=== PATIENT | male | born 1950 | race Asian ===

== ENCOUNTER 2023-11-17 07:53 | Observation (INO) | payer OTHER ==
[2023-11-17 09:40] LABS: BASO % 0.1 % (0-2.0); EOS % 0.9 % (0-4.5); HEMATOCRIT 39.3 % (35.4-49); HEMOGLOBIN 13.8 GM/dL (11.7-16.9); LYMPH % 15.6 % (8-40); MCH 31.2 pg (25.7-33.7); MCHC 35.2 g/dl (32.0-35.9); MEAN CELL VOLUME 88.6 fl (80-96); MEAN PLT VOLUME 8.3 fl (7.5-11.1); MONO % 5.4 % (3.8-10.2); PLATELET COUNT 177 10^3/uL (134-434); RBC 4.44 M/mm3 (4.00-5.60); RDW 14.6 % (11.9-15.9); WHITE BLOOD COUNT 6.8 K/mm3 (4.0-10.0)
[2023-11-17 09:51] LABS: ACTIVATED PTT 28.4 SECONDS (25.2-36.5); INR 1.03 (0.83-1.09)
[2023-11-17 09:54] LABS: URINE APPEARANCE CLEAR; URINE BILIRUBIN NEGATIVE (NEGATIVE); URINE COLOR YELLOW; URINE GLUCOSE (UA) 3+ (NEGATIVE); URINE KETONE TRACE (NEGATIVE); URINE LEUK ESTERASE NEGATIVE (NEGATIVE); URINE NITRITE NEGATIVE (NEGATIVE); URINE PROTEIN NEGATIVE (NEGATIVE); URINE UROBILINOGEN 0.2 mg/dL (0.2-1.0)
[2023-11-17 10:18] LABS: POTASSIUM 5.7 mmol/L (3.5-5.1)
[2023-11-17 10:22] LABS: CALCIUM 9.1 mg/dL (8.5-10.1)
[2023-11-17 10:23] LABS: ALBUMIN 4.3 g/dl (3.4-5.0); MAGNESIUM 2.2 mg/dL (1.8-2.4)
[2023-11-17 10:26] LABS: BLOOD UREA NITROGEN 15.4 mg/dL (7-18); CREATININE 0.9 mg/dL (0.55-1.3)
[2023-11-17 10:27] LABS: BILIRUBIN,TOTAL 1.1 mg/dL (0.2-1); TOT PROT 7.8 g/dl (6.4-8.2)
[2023-11-17 10:31] LABS: N-TERMINAL BNP 87.8 pg/ml (5-125)
[2023-11-17] MEDS ORDERED: ACETAMINOPHEN INJECTION 100 ML IVPB ONE (10:44)
[2023-11-17] MEDS ORDERED: FAMOTIDINE 20 MG/50 ML IVPB 20 MG/50 ML MG IVPB ONE (10:45)
[2023-11-17] MEDS ORDERED: ONDANSETRON 4 MG/2 ML VIAL ONE (10:45)
[2023-11-17] MEDS: ACETAMINOPHEN 1000 MG/100 ML BAG IVPB ONE (11:07)
[2023-11-17] MEDS: ONDANSETRON 4 MG/2 ML VIAL IVPUSH ONE (11:07)
[2023-11-17] MEDS ORDERED: MECLIZINE HCL 25 MG TABLET (FP) ONE (11:11)
[2023-11-17] MEDS: FAMOTIDINE 20 MG/50 ML IVPB 20 MG/50 ML MG IVPB ONE (12:15)
[2023-11-17] MEDS: MECLIZINE HCL 25 MG TABLET (FP) PO ONE (12:15)
[2023-11-17 13:08] LABS: POTASSIUM 3.5 mmol/L (3.5-5.1)
[2023-11-17 13:09] LABS: BLOOD UREA NITROGEN 15.1 mg/dL (7-18); CALCIUM 9.3 mg/dL (8.5-10.1)
[2023-11-17 13:14] LABS: CREATININE 0.7 mg/dL (0.55-1.3)
[2023-11-17] MEDS ORDERED: NITROGLYCERIN SUBLINGUAL 1/150 0.4 MG TAB SL PRN (13:54)
[2023-11-17 17:32] VITALS: BMI 20.7
[2023-11-17] MEDS: INSULIN ASPART SLIDING SCALE (NOVOLOG) 1 VIAL SQ SCH (18:03)
[2023-11-17] MEDS: MECLIZINE HCL 25 MG TABLET (FP) PO PRN (19:34)
[2023-11-17 21:28] VITALS: RESP 18
[2023-11-17] MEDS: ATORVASTATIN CA 20 MG TABLET (FP) PO SCH (21:28)
[2023-11-18] MEDS: DIVALPROEX NA *ER* EXTEND REL 500 MG TABLET.SA (FP) PO SCH (01:33)
[2023-11-18] MEDS: EMPAGLIFLOZIN (JARDIANCE) 10 MG TABLET PO SCH (06:35)
[2023-11-18 07:26] LABS: BASO % 0.3 % (0-2.0); EOS % 1.4 % (0-4.5); HEMATOCRIT 39.6 % (35.4-49); HEMOGLOBIN 13.6 GM/dL (11.7-16.9); LYMPH % 29.1 % (8-40); MCH 30.6 pg (25.7-33.7); MCHC 34.4 g/dl (32.0-35.9); MEAN PLT VOLUME 7.1 fl (7.5-11.1); MONO % 8.7 % (3.8-10.2); NEUT % 60.5 % (42.8-82.8); PLATELET COUNT 141 10^3/uL (134-434); RBC 4.44 M/mm3 (4.00-5.60); RDW 14.3 % (11.9-15.9); WHITE BLOOD COUNT 6.1 K/mm3 (4.0-10.0)
[2023-11-18 07:32] LABS: POTASSIUM 4.4 mmol/L (3.5-5.1)
[2023-11-18 07:51] LABS: CALCIUM 9.6 mg/dL (8.5-10.1)
[2023-11-18 07:52] LABS: BLOOD UREA NITROGEN 24.4 mg/dL (7-18); MAGNESIUM 2.4 mg/dL (1.8-2.4)
[2023-11-18 07:56] LABS: BILIRUBIN,TOTAL 0.6 mg/dL (0.2-1); CREATININE 0.9 mg/dL (0.55-1.3); TOT PROT 7.2 g/dl (6.4-8.2)
[2023-11-18] MEDS ORDERED: INSULIN (NOVOLOG) ASPART 100 UNITS/ML 10ML VIAL ONE (08:25)
[2023-11-18] MEDS: LIPASE/PROTEASE/AMYLASE 6,000 UNIT CAPSULE PO SCH (08:30)
[2023-11-18 10:32] VITALS: BP 127/81; PULSE 61; TEMP 98.8
[2023-11-18] MEDS: PANTOPRAZOLE 20 MG TABLET PO SCH (10:33)
[2023-11-18] MEDS: amLODIPine BESYLATE 10 MG TABLET (FP) PO SCH (10:33)
[2023-11-18] MEDS: ENOXAPARIN NA (PORCINE) 40 MG/0.4 ML DISP.SYRIN SQ SCH (10:33)
[2023-11-18] MEDS: ASPIRIN 81 MG CHEWABLE TABLETS PO SCH (10:33)
[2023-11-18] MEDS: metoPROLOL SUCCINATE 25 MG TAB.SR.24H (FP) PO SCH (10:33)
[2023-11-18] MEDS: LOSARTAN POTASSIUM 50 MG TABLET PO SCH (10:33)
[2023-11-18] MEDS: SERTRALINE HCL 25 MG TABLET (FP) PO SCH (10:33)
== END 2023-11-18 14:41 | disposition home or self-care (01) ==
LOC: JER 07:53 → JERBED 10:55 → J4W 14:59
PROVIDERS: ADMIT Internal Medicine; ATTEND Internal Medicine
PROC: 3E033NZ Introduction of Analgesics, Hypnotics, Sedatives into Peripheral Vein, Percutaneous Approach (ICD-10-PCS; principal; 2023-11-17)
PROC: 3E023GC Introduction of Other Therapeutic Substance into Muscle, Percutaneous Approach (ICD-10-PCS; 2023-11-17)
PROC: 3E033GC Introduction of Other Therapeutic Substance into Peripheral Vein, Percutaneous Approach (ICD-10-PCS; 2023-11-17)
DX: G43.809 Other migraine, not intractable, without status migrainosus (principal); I25.10 Atherosclerotic heart disease of native coronary artery without angina pectoris; I11.0 Hypertensive heart disease with heart failure; E11.9 Type 2 diabetes mellitus without complications; R53.1 Weakness; E78.00 Pure hypercholesterolemia, unspecified; Z95.1 Presence of aortocoronary bypass graft; R42 Dizziness and giddiness
CPT/HCPCS: 0241U-QW; 36415; 70450-TC; 71045-TC-FY; 80048; 80053; 80061; 81003; 82962; 83036; 83735; 83880; 84100; 84484; 85025; 85610; 85730; 87086; 93005; 93010; 96365; 96372; 96375; 97116-GP; 97162-GP; 99285-25; G0378; J0131